=== PATIENT | male | born 1960 | race Native Hawaiian/Other Pacific Islander ===

== ENCOUNTER 2023-06-23 11:35 | Outpatient (CLI) | payer BC ==
[2023-06-23 12:07] LABS: PLATELET COUNT 214 K/uL (142-355)
== END 2023-06-23 19:30 | disposition home or self-care (01) ==
LOC: RESP 11:35
PROVIDERS: ATTEND Plastic Surgery
DX: Z01.818 Encounter for other preprocedural examination (principal); I10 Essential (primary) hypertension
CPT/HCPCS: 36415; 80048; 85027; 93005